=== PATIENT | male | born 1980 ===

== ENCOUNTER 2017-06-16 12:34 | Emergency (ER) | payer OTHER ==
[~2017-06-16] VITALS: Ht 190.5 cm; Wt 124.7 kg
== END 2017-06-16 22:33 | disposition home or self-care (01) ==
LOC: ER 12:34
DX: K50.90 Crohn's disease, unspecified, without complications (principal)

== ENCOUNTER 2017-06-25 06:06 | Emergency (ER) | payer OTHER ==
[~2017-06-25] VITALS: Ht 193 cm; Wt 90.7 kg
== END 2017-06-26 07:02 | disposition left against medical advice (07) ==
LOC: ER 06:06
DX: K50.90 Crohn's disease, unspecified, without complications (principal); K52.9 Noninfective gastroenteritis and colitis, unspecified; R10.32 Left lower quadrant pain